=== PATIENT | male | born 1980 | race Caucasian/White ===

== ENCOUNTER 2023-11-20 18:20 | Inpatient (IN) | payer MEDICAID, SELFPAY ==
[2023-11-20 18:22] VITALS: BP 125/74; PULSE 89; RESP 18; TEMP 36.4; O2SAT 94; BMI 31.5
--- NOTE | 2023-11-20 18:26 | ED.C_ITS ---
HPI - Psych 2 General: Chief Complaint: Psychiatric Symptoms Stated Complaint: SI Time Seen by Provider: 11/20/23 18:21 History of Present Illness: Patient was to the ER by EMS with complaints of suicidal ideation. Patient states he wants to slit his throat and into his misery. Patient is homeless and is has a very valid on life. Patient says he is on multiple psychiatric medicines but does not know the name of them however he did state he took them this morning. Patient states he has been inpatient before even being here. Patient said he is willing to go again. Related Data Allergies Allergy/AdvReac Type Severity Reaction Status Date / Time No Known Allergies Allergy Verified 11/20/23 18:26 Review of Systems 2 General: Reports: 10 or more systems reviewed and unremarkable except in HPI and below Physical Exam 2 Const: COMMON NORMALS: no acute distress, average body habitus, patient oriented x3, no limitations, healthy appearing, alert and well nourished HENMT: COMMON NORMALS: normocephalic, atraumatic, hearing grossly normal bilaterally, external ears normal, Normal external nose present and moist oral mucous membranes HEAD & SCALP: normocephalic and atraumatic NOSE: Normal external nose present EXTERNAL EAR: Yes external ears normal Neck/C-Spine: COMMON NORMALS: full ROM, no lymphadenopathy, supple, no meningeal signs, no JVD and Thyroid normal THYROID: Thyroid normal Chest: COMMONS NORMALS: normal inspection of the chest and normal palpation of entire chest wall Resp: COMMON NORMALS: normal respiratory effort, No retractions, No use of accessory muscles and clear to auscultation bilaterally AUSCULTATION: clear to auscultation bilaterally Cardio: COMMON NORMALS: no JVD, regular rate, regular rhythm, S1 normal heart sound present, S2 normal heart sound present, No gallops present (Cardio), No clicks present (Cardio), No murmurs present (Cardio) and No rub (Cardio) R ATE: regular rate RHYTHM: regular rhythm HEART SOUNDS: S1 normal heart sound present and S2 normal heart sound present GI: COMMON NORMALS: Normal to inspection, nondistended, normoactive bowel sounds present, Soft to palpation, non-tender, No hepatosplenomegaly present and no masses PALPATION: Yes Soft to palpation and Yes No hepatosplenomegaly present Neuro: COMMON NORMALS: patient oriented x3 SENSORIUM/ORIENTATION: Yes alert MENINGEAL SIGNS: Yes no meningeal signs Course 2 Vital Signs: Vital signs: Vital Signs Temperature 97.6 F 11/20/23 18:22 Pulse Rate 78 11/20/23 19:14 Respiratory Rate 16 11/20/23 19:14 Blood Pressure 141/72 11/20/23 19:15 Pulse Oximetry 98 11/20/23 19:14 Oxygen Delivery Me thod Room Air 11/20/23 18:22 MDM - Psych Medical Decision Making Lab work was obtained, once patient was cleared medically, Dr. Fabian was consulted who agreed to place the patient in MPU. Differential Diagnosis Likely suicidal ideation Medical Records I reviewed the patient's medical records. Lab Data I reviewed the patient's lab results. 11/20/23 19:11/20/23 19: Laboratory Results WBC 5.93 10^3/uL (3.29-11.43) 11/20/23 19: RBC 4.43 10^6/uL (3.85-5.65) 11/20/23 19: Hgb 13.60 g/dL (11.27-16.99) 11/20/23 19: Hct 40.0 % (37-53) 11/20/23 19: MCV 90.3 fl (82-101) 11/20/23 19: MCH 30.7 pg (27-33) 11/20/23 19: MCHC 34.0 g/dL (30-55) 11/20/23 19: RDW 13.3 % (12.1-15.1) 11/20/23 19: Plt Count 298 10^3/cmm (157-399) 11/20/23 19: MPV 8.6 fL (7.4-10.4) 11/20/23 19: Neut % (Auto) 50.0 % 11/20/23 19: Lymph % (Auto) 38.1 % 11/20/23 19: [place] % (Auto) 7.8 % 11/20/23 19: Eos % (Auto) 2.4 % 11/20/23 19: Baso % (Auto) 1.2 % 11/20/23 19: Neut # (Auto) 2.97 10^3/uL (1.8-7.7) 11/20/23 19:01 Lymph # (Auto) 2.3 10^3/uL (0.8-4.8) 11/20/23 19:01 [place] # (Auto) 0.5 10^3/uL (0.2-0.9) 11/20/23 19:01 Eos # (Auto) 0.1 10^3/uL (0.0-0.8) 11/20/23 19: Baso # (Auto) 0.1 10^3/uL (0.0-0.1) 11/20/23 19: Nucleated RBC % (auto) 0 % 11/20/23 19: Nucleated RBCs # 0.0 /100WBC 11/20/23 19:01 Sodium 144 mmol/L (136-145) 11/20/23 19: Potassium 3.7 mmol/L (3.5-5.1) 11/20/23 19: Chloride 109 mmol/L (98-107) H 11/20/23 19: Carbon Dioxide 22 mmol/L (22-29) 11/20/23 19: Anion Gap 16.7 (5-19) 11/20/23 19:01 BUN 6 mg/dL (6-20) 11/20/23 19: Creatinine 0.9 mg/dL (0.7-1.2) 11/20/23 19: GFR Calculation 91.3 mL/min (90-130) 11/20/23 19: Glucose 117 mg/dL (65-115) H 11/20/23 19: Calculated Osmolality 297 mOsm/kg (285-295) H 11/20/23 19: Calcium 8.4 mg/dL (8.5-10.5) L 11/20/23 19: Total Bilirubin 0.2 mg/dL (0.15-1.2) 11/20/23 19: AST 16 U/L (0-40) 11/20/23 19: ALT 25 U/L (0-41) 11/20/23 19: Alkaline Phosphatase 66 U/L (40-130) 11/20/23 19:01 Total Protein 6.3 g/dL (6.6-8.7) L 11/20/23 19: Albumin 3.9 g/dL (3.5-5.2) 11/20/23 19:01 Globulin 2.4 g/dL (1.3-4.6) 11/20/23 19:01 Urine Color Yellow (Yellow) 11/20/23 15:09 Urine Appearance Clear (CLEAR) 11/20/23 15:09 Urine pH 5.5 (5-7) 11/20/23 15:09 Ur Specific [place] 1.018 (1.005-1.030) 11/20/23 15:09 Urine Protein Negative (Negative) 11/20/23 15:09 Urine Glucose (UA) Negative (Normal) 11/20/23 15:09 Urine Ketones Trace (Negative) 11/20/23 15:09 Urine Blood Negative (Negative) 11/20/23 15:09 Urine Nitrate Negative (Negative) 11/20/23 15:09 Urine Bilirubin Negative (Negative) 11/20/23 15:09 Urine Urobilinogen 0.2 mg/dL (Negative) 11/20/23 15:09 Ur Leukocyte Esterase Negative (Negative) 11/20/23 15:09 Amorphous Sediment Not Reportable 11/20/23 15:09 Salicylates < 0.3 mg/dL (3-10) L 11/20/23 19:01 Urine Opiates Screen Negative ng/mL (Negative) 11/20/23 15:09 Acetaminophen < 5.0 ug/mL (10-30) L 11/20/23 19:01 Ur Barbiturates Screen Negative ng/mL (Negative) 11/20/23 15:09 Ur Phencyclidine Scrn Negative ng/mL (Negative) 11/20/23 15:09 Ur Amphetamines Screen Positive ng/mL (Negative) H 11/20/23 15:09 U Benzodiazepines Scrn Positive ng/mL (Negative) H 11/20/23 15:09 Urine Cocaine Screen Negative ng/mL (Negative) 11/20/23 15:09 U Marijuana (THC) Screen Positive ng/mL (Negative) H 11/20/23 15:09 Ethyl Alcohol 110 mg/dL (0-10) H 11/20/23 19:01 All radiology interpretation(s) finalized by discharge Discharge Plan Discharge Patient Disposition: Admitted As Inpatient Clinical Impression: Suicidal ideation, Polysubstance abuse Condition: Stable Coding Level of Care Code ED Computer System Specialist for Nohemy Newsome
--- NOTE | 2023-11-20 18:46 | ECG_ITS ---
[facility] Test Date: 2023-11-20 Pat Name: Marquez Driscoll Department: Room: Gender: Male Mechanical Lead: : 1980 Requested By: Emile Juarez Order Number: [id number] Shari MD: Precious Padilla M.D. Measurements Intervals [place] Rate: 92 P: 57 NC: 145 QRS: 67 QRSD: 101 T: 66 QT: 356 QTc: 441 Interpretive Statements SINUS RHYTHM Compared to ECG 07/06/2016 22:37:18 No significant changes Electronically Signed On 11-21-2023 23:37:03 CDT by Precious Padilla M.D. [id number]
[2023-11-20 19:14] VITALS: PULSE 78; RESP 16; O2SAT 98
[2023-11-20 19:15] VITALS: BP 141/72
[2023-11-20 19:18] LABS: Basophils # 0.1 10^3/uL (0.0-0.1); Basophils % 1.2 %; Eosinophils # 0.1 10^3/uL (0.0-0.8); Eosinophils % 2.4 %; Lymphocytes # 2.3 10^3/uL (0.8-4.8); Lymphocytes % 38.1 %; Mean Corpuscular Hemoglobin 30.7 pg (27-33); Mean Corpuscular Volume 90.3 fl (82-101); Mean Platelet Volume 8.6 fL (7.4-10.4); Monocytes # 0.5 10^3/uL (0.2-0.9); Monocytes % 7.8 %; Neutrophils # 2.97 10^3/uL (1.8-7.7); Nucleated Red Blood Cells % 0 %; Platelet Count 298 10^3/cmm (157-399); Red Blood Count 4.43 10^6/uL (3.85-5.65); Red Cell Distribution Width 13.3 % (12.1-15.1); White Blood Count 5.93 10^3/uL (3.29-11.43)
[2023-11-20 19:20] LABS: Add Urine Microscopic? NO
[2023-11-20 19:29] LABS: Bilirubin Urine Negative (Negative); Blood Urine Negative (Negative); Glucose Urine UA Negative (Normal); Ketones Urine Trace (Negative); Leukocyte Esterase Urine Negative (Negative); Nitrate Urine Negative (Negative); Protein Urine Negative (Negative); Specific Gravity, Urine 1.018 (1.005-1.030); Urine Appearance Clear (CLEAR); Urine Color Yellow (Yellow); Urobilinogen Urine 0.2 mg/dL (Negative); pH Urine 5.5 (5-7)
[2023-11-20 19:37] LABS: Alanine Aminotransferase 25 U/L (0-41); Albumin Level 3.9 g/dL (3.5-5.2); Alcohol Level 110 mg/dL (0-10); Alkaline Phosphatase 66 U/L (40-130); Anion Gap 16.7 (5-19); Aspartate Amino Transferase 16 U/L (0-40); Blood Urea Nitrogen 6 mg/dL (6-20); Calcium 8.4 mg/dL (8.5-10.5); Carbon Dioxide 22 mmol/L (22-29); Chloride 109 mmol/L (98-107); Creatinine Clr Calc Pharmacy 122.7318; Globulin 2.4 g/dL (1.3-4.6); Glomerular Filtration Rate 91.3 mL/min (90-130); Glucose 117 mg/dL (65-115); Osmolality Calculated 297 mOsm/kg (285-295); Potassium 3.7 mmol/L (3.5-5.1); Sodium 144 mmol/L (136-145); Total Bilirubin 0.2 mg/dL (0.15-1.2); Total Protein 6.3 g/dL (6.6-8.7)
[2023-11-20 19:39] LABS: Amphetamines Screen Urine Positive (Negative); Barbiturates Screen Urine Negative (Negative); Benzodiazepines Screen Urine Positive (Negative); Cocaine Screen Urine Negative (Negative); Opiate Screen Urine Negative (Negative); PCP Screen Urine Negative (Negative); THC Screen Urine Positive (Negative)
[2023-11-20 19:45] LABS: Acetaminophen < 5.0 ug/mL (10-30); Salicylate < 0.3 mg/dL (3-10)
[2023-11-20 20:01] LABS: Charge for UA Resulting for Rev
--- NOTE | 2023-11-20 20:36 | PC.NURSE ---
[address] [facility] copy of [address] RN and security. Pt stated that he has been placed under a 96 HH in the past and denies having any questions. Pt remained on his side facing the wall during interaction, pt answered all questions correctly.
[2023-11-20 20:51] VITALS: BP 114/76; PULSE 75; RESP 16; O2SAT 95
[2023-11-20 21:22] VITALS: BP 129/92; PULSE 95; RESP 20; TEMP 36.6; O2SAT 97
[2023-11-20 22:00] VITALS: BP 129/92; PULSE 95; RESP 20; TEMP 36.6; O2SAT 97
[2023-11-21] VITALS (8 sets, daily range): BP systolic 118–157; BP diastolic 74–99; PULSE 77–93; RESP 16–18; TEMP 36.4–36.9; O2SAT 95–100
[2023-11-21] MEDS: multivitamin therapeutic Tablet 1 TAB PO (08:44)
[2023-11-21] MEDS: folic acid 1 mg Tablet PO (08:44)
[2023-11-21] MEDS: thiamine 100 mg Tablet PO (08:44)
[2023-11-21] MEDS: meloxicam 7.5 mg tablet 15 MG PO (10:49)
[2023-11-21] MEDS: cetirizine 10 mg Tablet PO (10:49)
[2023-11-21] MEDS: losartan 50 mg Tablet PO (10:49)
[2023-11-21] MEDS: pantoprazole DR 40 mg Tablet PO (10:49)
[2023-11-21] MEDS: diazePAM 5 mg Tablet 10 MG PO (10:59)
[2023-11-21] MEDS: hyDROXYzine 25 mg Capsule 50 MG PO (13:06)
[2023-11-21] MEDS: buPROPion XL (24 HR) 150 mg Tablet PO (14:39)
[2023-11-21] MEDS: paliperidone ER 6 mg Tablet PO (14:39)
--- NOTE | 2023-11-21 14:45 | P.NPUHP_ITS ---
Providers/Chief Complaint 2 Admitting Physician: Jonny Erazo MD Primary Care Provider: LALITHA Holliday Chief Complaint: SI HPI NPU History of Present Illness Marquez Driscoll is a 43 year old male with a history of multiple inpatient psychiatric hospitalizations who presented to the emergency department by EMS with complaints of having suicidal ideation. The patient had indicated that he wishes to slit his throat and states that he has been depressed. He reports having been homeless for several years with brief periods of staying with friends and having to stay at various shelters. He reports that he had been prescribed multiple medications but states that he was forgetful as to the name of the medications. He had reported a history of methamphetamine abuse since the age of [age] years old. He presented with a blood alcohol level of 110 and a urine drug screen that was positive for benzodiazepines, methamphetamine and marijuana. The patient had reported a previous history of psychosis secondary to using methamphetamine although he had stated that he had been diagnosed with paranoid schizophrenia. Patient had also reported having depression and suicidal thoughts. He had endorsed some feelings of hopelessness. He had acknowledged having previously been hospitalized here several years ago. Records were reviewed and the patient had reported suicidal ideation in the past with a history of benzodiazepine misuse noted. He had reported that he has no history of alcohol related withdrawal symptoms although previous records had indicated the patient had significant use of alcohol with some concerns over alcohol related withdrawal symptoms. He does appear to have a history of physical and verbal aggression. He had apparently had a history of using Valium and running out of his medications early due to increased use of it at this time. The patient had reported that he had a frequent monthly visit with his outpatient psychiatrist in the community and states that he has been trying to get help for his mood problems. He had endorsed hearing voices at this time stating that he should kill himself. Inpatient psychiatric history: He reports having been treated at [facility] less than 1 month ago. Patient had reported previous admissions inpatient at [facility], the neuropsychiatric unit, and [facility]. Outpatient psychiatric history: He currently is receiving treatment through the [facility] under Dr. Abelino WOO for medication management. Previous medications include Wellbutrin, Lexapro, hydroxyzine, Remeron, Valium, Minipress, gabapentin, Haldol, Zoloft,, olanzapine, Abilify Substance abuse history: The patient had reported a history of inpatient substance abuse treatment at [facility] that he had apparently left prematurely. He had reported other previous inpatient substance abuse treatment for methamphetamine, opiates, and alcohol. Medical history: History of fibular fracture, history of traumatic brain injury status postcraniotomy, right knee pain, HTN, GERD, chronic pain. Surgical history: Craniotomy Allergies: No known drug allergies Medications: Losartan, pantoprazole, meloxicam, hydroxyzine, diclofenac, Valium 10 mg 3 times a day, Zyrtec 10 mg daily. Legal history: He reports a history of having been incarcerated and is currently on probation. history: none Family psychiatric history: Paternal grandfather had schizophrenia along with father. Social History: The patient is currently homeless. He states he had been previously 1 time and is now . He has 3 children of adult age. He did not endorse any significant history of abuse. The patient's parents had split up when he was 8 years old. He reports that he had earned his GED and grew up near to come [facility]. He states that he has trouble with keeping a job. He has active legal troubles. He has 1 brother and a sister who is . He had reported that he had no learning problems growing up. Meds NPU Home Medications Medication Instructions Recorded Confirmed Last Taken Type cetirizine 10 mg tablet 10 mg PO DAILY 11/21/23 11/21/23 Unknown History diazepam 10 mg tablet 10 mg PO TID PRN Anxiety 11/21/23 11/21/23 Unknown History diclofenac sodium 1 % topical gel 2 g topical QID 11/21/23 11/21/23 Unknown History hydrocortisone 1 % topical cream 1 applic topical TID PRN Itching 11/21/23 11/21/23 Unknown History hydroxyzine pamoate 50 mg capsule 50 mg PO PRN PRN Anxiety 11/21/23 11/21/23 Unknown History losartan 50 mg tablet 50 mg PO DAILY 11/21/23 11/21/23 Unknown History meloxicam 15 mg tablet 15 mg PO DAILY 11/21/23 11/21/23 Unknown History naproxen 500 mg tablet 500 mg PO BID 11/21/23 11/21/23 Unknown History pantoprazole 40 mg tablet,delayed 40 mg PO DAILY 11/21/23 11/21/23 Unknown History release Allergies Allergy/AdvReac Type Severity Reaction Status Date / Time No Known Allergies Allergy Verified 11/20/23 18:26 Mental Status Exam 2 MSE Comments: The patient appeared somewhat older than his stated age. He was somewhat demanding during his interview with some sense of entitlement noted. His dentition appeared poor. He appeared slightly overweight. There was no evidence of any abnormal involuntary motor movements tics or tremors appreciated. His speech was diminished in productivity but normal in volume. His mood was described as depressed. His affect was restricted in range and mood congruent. He had reported auditory hallucinations and denied any visual hallucinations. He reported the hallucinations were telling him to harm himself. There was no clear evidence of delusional thinking. There was some evidence of mild paranoia and distrust. His thought process was linear logical and goal-directed. His thought content showed evidence of suicidal ideation with active plan to slit his throat. He denied any homicidal ideation. His recent and remote memory appeared grossly intact. His insight is feeble. His judgment is impaired. His impulse control appeared limited. Vitals/I&O/Wt Last Vital Signs Temp 98.1 F 11/21/23 12:20 Pulse 93 11/21/23 12:20 Resp 18 11/21/23 12:20 BP 157/99 11/21/23 12:20 Pulse Ox 100 11/21/23 12:20 O2 Del Method Room Air 11/21/23 05:02 Weight last 48 hrs Weight 99.79 kg Data NPU 11/20/23 19:01 11/20/23 19:01 A&P Assessment and plan (1) Unspecified psychosis: (2) Suicidal ideation: (3) Polysubstance abuse: (4) Depression, unspecified: Plan 43-year-old male history of multiple inpatient hospitalizations currently using multiple substances and endorsing suicidal ideation in the context of active homelessness most recently discharged less than a month ago from another inpatient psychiatric facility. #1.? Engage patient in individual milieu and group therapy. #2?? Recommend sober living treatment at the highest level of care to which the patient is willing to commit #3??? CIWA for alcohol withdrawal #4?? TO-15 minute checks? #5?? Restart psychiatric medications with addition of invega to target psychosis. Involuntary Hold Information 2 96 Hour Hold: 96 Hour Involuntary Admission: Yes 96 Hour Hold Ending Date: 11/26/23 96 Hour Hold Ending Time: 20:05 Attestations NPU 2 Medical Necessity Statement*: Inpatient hospitalization is medically necessary and deemed to ?be ?the clinically appropriate intervention ?at this time.? We will monitor/initiate medications and make changes as indicated.? The patient will be in the hospital for over 2 midnights.? The patient?s likely length of stay 5-7 days. Coding Level of Care Code Acute Code for Chg Fwd Diagnoses Unspecified psychosis F29 Suicidal ideation R45.851 Polysubstance abuse F19.10 Depression, unspecified F32.A
[2023-11-21] MEDS: naproxen 500 mg Tablet PO (17:32)
[2023-11-22] VITALS (8 sets, daily range): BP systolic 122–151; BP diastolic 74–102; PULSE 69–96; RESP 16–18; TEMP 36.4–36.7; O2SAT 95–97
[2023-11-22] MEDS: meloxicam 7.5 mg tablet 15 MG PO (08:21)
[2023-11-22] MEDS: thiamine 100 mg Tablet PO (08:21)
[2023-11-22] MEDS: naproxen 500 mg Tablet PO ×2 (08:22→17:05)
[2023-11-22] MEDS: paliperidone ER 6 mg Tablet PO (08:22)
[2023-11-22] MEDS: pantoprazole DR 40 mg Tablet PO (08:22)
[2023-11-22] MEDS: buPROPion XL (24 HR) 150 mg Tablet PO (08:22)
[2023-11-22] MEDS: diazePAM 5 mg Tablet 10 MG PO ×2 (08:22→17:05)
[2023-11-22] MEDS: multivitamin therapeutic Tablet 1 TAB PO (08:23)
[2023-11-22] MEDS: losartan 50 mg Tablet PO (08:23)
[2023-11-22] MEDS: folic acid 1 mg Tablet PO (08:23)
[2023-11-22] MEDS: cetirizine 10 mg Tablet PO (08:24)
[2023-11-22] MEDS: diclofenac 1% Topical Gel 100 gm 4 APPLIC TOPICAL ×2 (08:26→17:05)
--- NOTE | 2023-11-22 09:25 | PC.NURSE ---
UP WALKING IN THE HALLS. PT REQUESTS MY VALIUM I'M REALLY ANXIOUS. MED NURSE NOTIFIED TO GIVE. RATES ANXIETY 7/10 AND DEPRESSION 6/10. RATES PAIN 6/10 IN KNEES. MED NURSE TO GIVE NAPROXEN AND AM MEDICATIONS FOR PAIN. PT REPORTS HE SLEPT GOOD STATES GOAL FOR THE DAY IS TO GET IN THAT PROGRAM IN [facility]. I NEED THE APPLICATION. PT WAS ASSURED THAT CASE MANAGEMENT WOULD COME AND SPEAK TO TO HIM TODAY AND I WOULD LET THEM KNOW HE NEEDED THE CEDRIC. PT NOTED TO HAVE FLAT AFFECT AND DEPRESSED MOOD. DENIES SI/HI AND AVH AT THIS TIME. ALL QUESTIONS ANSWERED AND SUPPORT WAS VOICED.
[2023-11-22] MEDS: hyDROXYzine 25 mg Capsule 50 MG PO (11:52)
--- NOTE | 2023-11-22 15:03 | W.PM.NPUPNS ---
Subjective NPU Subjective: 43-year-old male admitted with suicidal ideation having been homeless with reports of history of alcohol use along with methamphetamine use. Patient had expressed desire to go to the [facility] in [place] for eventual placement. The patient had understood that he would not be allowed to be on controlled substances there and requested that a Valium taper occur. He stated that he wished to be there as it was close to where his mother was at this time. He had endorsed having had a head injury and history of a craniotomy. The patient had reported having problems with impulsivity and mood swings and reported no side effects from the Invega 6 mg daily. The patient had reported feeling a little bit better today. He had endorsed having a history of mood swings and problems with impulse control. He denied any hallucinations at this time. He reports the auditory hallucinations were present. He was positive for methamphetamine. Mental Status Exam MSE Comments: The patient appeared somewhat older than his stated age. He was somewhat demanding during his interview with some sense of entitlement noted. His dentition appeared poor. He appeared slightly overweight. There was no evidence of any abnormal involuntary motor movements tics or tremors appreciated. His speech was diminished in productivity and rate but normal in volume. His mood was described as depressed. His affect was restricted in range and mood congruent. He had reported auditory hallucinations and denied any visual hallucinations. He reported the hallucinations continue to be telling him to harm himself. There was no clear evidence of delusional thinking. There was some evidence of mild paranoia and distrust. His thought process was linear logical and goal-directed. His thought content showed evidence of suicidal ideation although he reported no plan today. He denied any homicidal ideation. His recent and remote memory appeared grossly intact. His insight is feeble. His judgment is impaired. His impulse control appeared limited. Vitals/I&O/Wt Last Vital Signs Temp 97.6 F 11/22/23 08:00 Pulse 84 11/22/23 12:00 Resp 17 11/22/23 12:00 BP 134/83 11/22/23 12:00 Pulse Ox 97 11/22/23 12:00 O2 Del Method Room Air 11/21/23 16:00 Weight last 48 hrs Weight 99.79 kg Data NPU 11/20/23 19:01 11/20/23 19:01 A&P Assessment and plan (1) Unspecified psychosis: (2) Suicidal ideation: (3) Polysubstance abuse: (4) Depression, unspecified: Plan 43-year-old male history of multiple inpatient hospitalizations currently using multiple substances and endorsing suicidal ideation in the context of active homelessness most recently discharged less than a month ago from another inpatient psychiatric facility. #1.? Engage patient in individual milieu and group therapy. #2?? Recommend sober living treatment at the highest level of care to which the patient is willing to commit #3??? CIWA for alcohol withdrawal #4?? TO-15 minute checks? #5?? Continue Lexapro for depression, invega 6mg daily to target psychosis. Began taper of Valium with decrease to 10mg bid today. Involuntary Hold Information 96 Hour Hold: 96 Hour Involuntary Admission: Yes 96 Hour Hold Ending Date: 11/26/23 96 Hour Hold Ending Time: 20:05 Attestations NPU Medical Necessity Statement*: Inpatient hospitalization is medically necessary and deemed to ?be ?the clinically appropriate intervention ?at this time.? We will monitor/initiate medications and make changes as indicated.?? The patient?s likely length of stay 5-7 days. Coding Level of Care Code Acute Code for Chg Fwd Diagnoses Unspecified psychosis F29 Suicidal ideation R45.851 Polysubstance abuse F19.10 Depression, unspecified F32.A
[2023-11-23] MEDS: hyDROXYzine 25 mg Capsule 50 MG PO ×2 (01:54→12:58)
[2023-11-23 04:00] VITALS: BP 142/91; PULSE 76; RESP 16; O2SAT 96
[2023-11-23] MEDS: OLANZapine 5 mg ODT PO (05:50)
--- NOTE | 2023-11-23 07:56 | PC.NURSE ---
During morning assessment, patient asks to be discharged earlier than his 96-hour ending date. Patient has a plan to go to [facility]. He says he has to fill out the application and stop taking valium. Patient says his mom is about 5 miles from this facility and that she is supportive of him. Patient denies SI, HI, AVH, depression, and anxiety. Calm during assessment.
[2023-11-23] MEDS: paliperidone ER 6 mg Tablet PO (07:58)
[2023-11-23] MEDS: diazePAM 5 mg Tablet 10 MG PO (07:58)
[2023-11-23] MEDS: pantoprazole DR 40 mg Tablet PO (07:58)
[2023-11-23] MEDS: multivitamin therapeutic Tablet 1 TAB PO (07:58)
[2023-11-23] MEDS: cetirizine 10 mg Tablet PO (07:58)
[2023-11-23] MEDS: buPROPion XL (24 HR) 150 mg Tablet PO (07:58)
[2023-11-23] MEDS: naproxen 500 mg Tablet PO ×2 (07:58→17:08)
[2023-11-23] MEDS: folic acid 1 mg Tablet PO (07:58)
[2023-11-23 07:59] VITALS: BP 151/111
[2023-11-23] MEDS: meloxicam 7.5 mg tablet 15 MG PO (07:59)
[2023-11-23] MEDS: losartan 50 mg Tablet PO (07:59)
[2023-11-23] MEDS: thiamine 100 mg Tablet PO (07:59)
[2023-11-23 08:00] VITALS: BP 151/111; PULSE 99; RESP 18; TEMP 36.6; O2SAT 99
[2023-11-23 11:34] VITALS: BP 109/73; PULSE 78; RESP 16; TEMP 36.8; O2SAT 97
--- NOTE | 2023-11-23 12:59 | PC.NURSE ---
Patient reports anxiety 07/29. Administered vistaril 50mg PO to patient.
--- NOTE | 2023-11-23 14:40 | PC.NURSE ---
THis nurse takled with staff at [facility] in [place]. Patient was picking up Valium from Jan 02, 2024 until September 19, 2023. Talked to staff at [facility]. Patient last picked up valium on 10/30, 90 tablets for a 30 day supply. 10mg PO TID PRN.
[2023-11-23 16:00] VITALS: BP 156/94; PULSE 111; RESP 18; TEMP 36.6; O2SAT 97
--- NOTE | 2023-11-23 16:00 | P.NPUPN_ITS ---
Subjective NPU 2 Subjective: Patient presented today reporting that he is doing okay. He identified that he wants to go to the sober living program and is very interested in leaving today. We discussed concerns about his Valium use which he really downplayed and said that he does not even use it as prescribed and probably has a inappropriate relationship with the Valium. He reports that he does not need it and does not believe that he even needs the other medications because there was some resistance by 1 program to him taking oral Invega. We asked him if he was interested in taking the injection which led to him reporting that he would does not want the medication at all and just wants to be able to go to this program. We discussed finding out whether the program has openings that we will be still available on Sunday as we are not wanting to make any unplanned discharge because he is chomping at the bed to go. He denied any side effects to the medication. Mental Status Exam 2 MSE Comments: This is a obese white male in hospital scrubs with adequate grooming and limited eye contact. No abnormal movements except for mild psychomotor retardation. Somewhat cooperative with exam but continuing to be demanding in mild distress. Speech was slightly decreased rate and volume. Mood described as better for like him ready to go to treatment, affect slightly irritable. Thought process mostly organized. Thought content: Patient denies suicidal or homicidal ideation, there were no delusions reported or noted, he denied any auditory or visual hallucinations. Attention and concentration appeared intact and memory was mostly reliable but no more formally tested. He is alert and oriented x 3. Insight and judgment are limited and impulse control is limited versus impaired. Vitals/I&O/Wt Last Vital Signs Temp 97.9 F 11/23/23 16:00 Pulse 111 H 11/23/23 16:00 Resp 18 11/23/23 16:00 BP 156/94 11/23/23 16:00 Pulse Ox 97 11/23/23 16:00 O2 Del Method Room Air 11/23/23 16:00 Data NPU 11/20/23 19:01 11/20/23 19:01 A&P Assessment and plan (1) Unspecified psychosis: (2) Suicidal ideation: (3) Polysubstance abuse: (4) Depression, unspecified: Plan 43-year-old male history of multiple inpatient hospitalizations currently using multiple substances and endorsing suicidal ideation in the context of active homelessness most recently discharged less than a month ago from another inpatient psychiatric facility. 1. Continue current medication including Lexapro and Invega for psychosis. Will decrease Valium to 5 mg p.o. 3 times daily. 2. Continue every 15 minute checks for safety. 3. Encourage individual group and milieu therapy. 4. Continue CIWA protocol for alcohol as well as benzodiazepine withdrawal. 5. Encourage individual, group and milieu therapy. 6. Patient working with social work team for sober living options. Involuntary Hold Information 2 96 Hour Hold: 96 Hour Involuntary Admission: Yes 96 Hour Hold Ending Date: 11/26/23 96 Hour Hold Ending Time: 20:05 Attestations NPU 2 Medical Necessity Statement*: Inpatient hospitalization is medically necessary and deemed to ?be ?the clinically appropriate intervention ?at this time.? We will monitor/initiate medications and make changes as indicated.?? The patient?s likely length of stay 5-7 days. Coding Level of Care Code Acute Code for Chg Fwd Diagnoses Unspecified psychosis F29 Suicidal ideation R45.851 Polysubstance abuse F19.10 Depression, unspecified F32.A
[2023-11-23] MEDS: diclofenac 1% Topical Gel 100 gm 4 APPLIC TOPICAL (17:10)
--- NOTE | 2023-11-23 18:48 | PC.NURSE ---
PT REFUSED INSULIN AT DINNER TIME. PATIENT ALSO REFUSED VALIUM. DR. STOKES NOTIFIED. EDUCATION PERFORMED TO PATIENT.
[2023-11-23 20:00] VITALS: BP 121/77; PULSE 88; RESP 16; O2SAT 96
--- NOTE | 2023-11-24 00:04 | PC.NURSE ---
Due to another patient showing signs of psychosis, the midnight CIWA vitals were not done.
[2023-11-24 04:00] VITALS: BP 121/78; PULSE 84; RESP 16; O2SAT 97
[2023-11-24 07:25] VITALS: BP 128/88; PULSE 85; RESP 16; TEMP 36.9; O2SAT 97
[2023-11-24] MEDS: naproxen 500 mg Tablet PO ×2 (10:08→17:49)
[2023-11-24] MEDS: multivitamin therapeutic Tablet 1 TAB PO (10:09)
[2023-11-24] MEDS: paliperidone ER 6 mg Tablet PO (10:10)
[2023-11-24] MEDS: cetirizine 10 mg Tablet PO (10:10)
[2023-11-24] MEDS: buPROPion XL (24 HR) 150 mg Tablet PO (10:10)
[2023-11-24] MEDS: meloxicam 7.5 mg tablet 15 MG PO (10:10)
[2023-11-24] MEDS: folic acid 1 mg Tablet PO (10:10)
[2023-11-24] MEDS: diazePAM 5 mg Tablet 10 MG PO (10:11)
[2023-11-24] MEDS: thiamine 100 mg Tablet PO (10:11)
[2023-11-24] MEDS: pantoprazole DR 40 mg Tablet PO (10:11)
[2023-11-24] MEDS: diclofenac 1% Topical Gel 100 gm 4 APPLIC TOPICAL ×2 (10:18→21:31)
[2023-11-24 10:54] VITALS: BP 119/74; PULSE 93; RESP 16; TEMP 37.1; O2SAT 95
--- NOTE | 2023-11-24 11:54 | P.NPUPN_ITS ---
Subjective NPU 2 Subjective: Patient presented today reporting that he is doing okay. He continues to be quite focused on wanting to discharge immediately. We discussed the fact that we do not like to do unplanned discharges. And that we do not really know what the program's expectations are. He is being resistant to his medication because he is afraid that it might cause them to refuse him. We discussed the fact that the likely discharge plan would be Sunday after the social work team was able to do confirmation but he continues to lobby for discharge as soon as is possible including today. Mental Status Exam 2 MSE Comments: This is a obese white male in hospital scrubs with adequate grooming and limited eye contact. No abnormal movements except for mild psychomotor retardation. Somewhat cooperative with exam but continuing to be demanding in mild distress. Speech was slightly decreased rate and volume. Mood described as better for like him ready to go to treatment, affect slightly irritable. Thought process mostly organized. Thought content: Patient denies suicidal or homicidal ideation, there were no delusions reported or noted, he denied any auditory or visual hallucinations. Attention and concentration appeared intact and memory was mostly reliable but no more formally tested. He is alert and oriented x 3. Insight and judgment are limited and impulse control is limited versus impaired. Vitals/I&O/Wt Last Vital Signs Temp 98.7 F 11/24/23 10:54 Pulse 93 11/24/23 10:54 Resp 16 11/24/23 10:54 BP 119/74 11/24/23 10:54 Pulse Ox 95 11/24/23 10:54 O2 Del Method Room Air 11/24/23 10:54 Data NPU 11/20/23 19:01 11/20/23 19:01 A&P Assessment and plan (1) Unspecified psychosis: (2) Suicidal ideation: (3) Polysubstance abuse: (4) Depression, unspecified: Plan 43-year-old male history of multiple inpatient hospitalizations currently using multiple substances and endorsing suicidal ideation in the context of active homelessness most recently discharged less than a month ago from another inpatient psychiatric facility. 1. Continue current medication including Lexapro and Invega for psychosis. Will decrease Valium to 5 mg p.o. 3 times daily. 2. Continue every 15 minute checks for safety. 3. Encourage individual group and milieu therapy. 4. Continue CIWA protocol for alcohol as well as benzodiazepine withdrawal. 5. Encourage individual, group and milieu therapy. 6. Patient working with social work team for sober living options. Reportedly has a facility picked saying he can come whenever. Involuntary Hold Information 2 96 Hour Hold: 96 Hour Involuntary Admission: Yes 96 Hour Hold Ending Date: 11/26/23 96 Hour Hold Ending Time: 20:05 Attestations NPU 2 Medical Necessity Statement*: Inpatient hospitalization is medically necessary and deemed to ?be ?the clinically appropriate intervention ?at this time.? We will monitor/initiate medications and make changes as indicated.?? The patient?s likely length of stay 4-6 days. Coding Level of Care Code Acute Code for Chg Fwd Diagnoses Unspecified psychosis F29 Suicidal ideation R45.851 Polysubstance abuse F19.10 Depression, unspecified F32.A
[2023-11-24 14:00] VITALS: BP 134/90; PULSE 99; RESP 18; TEMP 37; O2SAT 98
[2023-11-24] MEDS: diazePAM 5 mg Tablet PO (17:49)
[2023-11-24 19:29] VITALS: BP 123/82; PULSE 97; RESP 18; TEMP 36.6; O2SAT 98
[2023-11-24] MEDS: trazodone 50 mg Tablet PO (21:32)
[2023-11-25 06:00] VITALS: BP 133/82; PULSE 93; RESP 18; TEMP 36.7; O2SAT 96; BMI 30.6
[2023-11-25] MEDS: multivitamin therapeutic Tablet 1 TAB PO (09:05)
[2023-11-25] MEDS: cetirizine 10 mg Tablet PO (09:05)
[2023-11-25] MEDS: naproxen 500 mg Tablet PO ×2 (09:05→17:12)
[2023-11-25] MEDS: meloxicam 7.5 mg tablet 15 MG PO (09:05)
[2023-11-25] MEDS: paliperidone ER 6 mg Tablet PO (09:05)
[2023-11-25] MEDS: folic acid 1 mg Tablet PO (09:05)
[2023-11-25] MEDS: pantoprazole DR 40 mg Tablet PO (09:05)
[2023-11-25] MEDS: buPROPion XL (24 HR) 150 mg Tablet PO (09:05)
[2023-11-25] MEDS: diazePAM 5 mg Tablet PO ×2 (09:05→17:12)
[2023-11-25] MEDS: thiamine 100 mg Tablet PO (09:06)
[2023-11-25 14:00] VITALS: BP 125/91; PULSE 115; RESP 18; TEMP 36.8; O2SAT 98
--- NOTE | 2023-11-25 18:18 | P.NPUPN_ITS ---
Subjective NPU 2 Subjective: Patient presented today reporting that he is doing okay. He continues to focus on being discharged and appears to be possibly being dishonest about the arrangement per staff reports of conversations with the program he is trying to get into. He denies any side effects to his medications and continues to focus on being discharged. Mental Status Exam 2 MSE Comments: This is a obese white male in hospital scrubs with adequate grooming and limited eye contact. No abnormal movements except for mild psychomotor retardation. Somewhat cooperative with exam but continuing to be demanding in mild distress. Speech was slightly decreased rate and volume. Mood described as better for like him ready to go to treatment, affect slightly irritable. Thought process mostly organized. Thought content: Patient denies suicidal or homicidal ideation, there were no delusions reported or noted, he denied any auditory or visual hallucinations. Attention and concentration appeared intact and memory was mostly reliable but no more formally tested. He is alert and oriented x 3. Insight and judgment are limited and impulse control is limited versus impaired. Vitals/I&O/Wt Last Vital Signs Temp 98.2 F 11/25/23 14:00 Pulse 115 H 11/25/23 14:00 Resp 18 11/25/23 14:00 BP 125/91 11/25/23 14:00 Pulse Ox 98 11/25/23 14:00 O2 Del Method Room Air 11/25/23 14:00 Weight last 48 hrs Weight 96.842 kg Data NPU 11/20/23 19:01 11/20/23 19:01 A&P Assessment and plan (1) Unspecified psychosis: (2) Suicidal ideation: (3) Polysubstance abuse: (4) Depression, unspecified: Plan 43-year-old male history of multiple inpatient hospitalizations currently using multiple substances and endorsing suicidal ideation in the context of active homelessness most recently discharged less than a month ago from another inpatient psychiatric facility. 1. Continue current medication including Lexapro and Invega for psychosis. Will decrease Valium to 5 mg p.o. 3 times daily. Will decrease Valium to 5 mg p.o. twice daily likely tomorrow 2. Continue every 15 minute checks for safety. 3. Encourage individual group and milieu therapy. 4. Continue CIWA protocol for alcohol as well as benzodiazepine withdrawal. 5. Encourage individual, group and milieu therapy. 6. Patient working with social work team for sober living options. Reportedly has a facility picked saying he can come whenever. Involuntary Hold Information 2 96 Hour Hold: 96 Hour Involuntary Admission: Yes 96 Hour Hold Ending Date: 11/26/23 96 Hour Hold Ending Time: 20:05 Attestations NPU 2 Medical Necessity Statement*: Inpatient hospitalization is medically necessary and deemed to ?be ?the clinically appropriate intervention ?at this time.? We will monitor/initiate medications and make changes as indicated.?? The patient?s likely length of stay 1-3 days. Coding Level of Care Code Acute Code for Chg Fwd Diagnoses Unspecified psychosis F29 Suicidal ideation R45.851 Polysubstance abuse F19.10 Depression, unspecified F32.A
[2023-11-25 21:55] VITALS: BP 127/89; PULSE 107; RESP 18; TEMP 36.6; O2SAT 98
[2023-11-26] MEDS: hyDROXYzine 25 mg Capsule 50 MG PO (02:26)
[2023-11-26 06:00] VITALS: BP 101/65; PULSE 86; RESP 16; O2SAT 95
--- NOTE | 2023-11-26 08:53 | PC.NURSE ---
UP WALKING HALLS. DENIES PAIN. DENIES SI/HI AND AVH AT THIS TIME. RATES ANXIETY 10 AND DEPRESSION /. PT STATES HE IS ANXIOUS BUT SAYS I GET MY VALIUM HERE SOON. REPORTS HE SLEPT OKAY BUT I HAD NIGHTMARES ALL NIGHT. PT STATES GOAL FOR THE DAY IS TO LEAVE. PT IS NOTED TO HAVE A FLAT AFFECT AND GUARDED WITH STAFF AT TIMES. ALL QUESTIONS ANSWERED AND SUPPORT WAS VOICED. PT STATES HE ANTICIPATES DISCHARGE TODAY. RN EDUCATED PT THAT I WOULD LET HIM KNOW AFTER THE MEETING.
[2023-11-26] MEDS: folic acid 1 mg Tablet PO (09:49)
[2023-11-26] MEDS: buPROPion XL (24 HR) 150 mg Tablet PO (09:49)
[2023-11-26] MEDS: naproxen 500 mg Tablet PO (09:49)
[2023-11-26] MEDS: meloxicam 7.5 mg tablet 15 MG PO (09:50)
[2023-11-26] MEDS: cetirizine 10 mg Tablet PO (09:50)
[2023-11-26] MEDS: pantoprazole DR 40 mg Tablet PO (09:50)
[2023-11-26] MEDS: thiamine 100 mg Tablet PO (09:50)
[2023-11-26] MEDS: multivitamin therapeutic Tablet 1 TAB PO (09:50)
[2023-11-26] MEDS: diazePAM 5 mg Tablet PO (09:50)
--- NOTE | 2023-11-26 09:50 | PC.NURSE ---
pt refusing invega states causing nightmares.
--- NOTE | 2023-11-26 13:00 | P.NPUDS_ITS ---
Diagnoses at Discharge Discharge Diagnosis (1) Unspecified psychosis: Status: Acute (2) Suicidal ideation: Status: Acute (3) Polysubstance abuse: Status: Acute (4) Depression, unspecified: Status: Acute Reason for Visit Reason for Visit: SI Brief History: History of Present Illness Marquez Driscoll is a 43 year old male with a history of multiple inpatient psychiatric hospitalizations who presented to the emergency department by EMS with complaints of having suicidal ideation. The patient had indicated that he wishes to slit his throat and states that he has been depressed. He reports having been homeless for several years with brief periods of staying with friends and having to stay at various shelters. He reports that he had been prescribed multiple medications but states that he was forgetful as to the name of the medications. He had reported a history of methamphetamine abuse since the age of [age] years old. He presented with a blood alcohol level of 110 and a urine drug screen that was positive for benzodiazepines, methamphetamine and marijuana. The patient had reported a previous history of psychosis secondary to using methamphetamine although he had stated that he had been diagnosed with paranoid schizophrenia. Patient had also reported having depression and suicidal thoughts. He had endorsed some feelings of hopelessness. He had acknowledged having previously been hospitalized here several years ago. Records were reviewed and the patient had reported suicidal ideation in the past with a history of benzodiazepine misuse noted. He had reported that he has no history of alcohol related withdrawal symptoms although previous records had indicated the patient had significant use of alcohol with some concerns over alcohol related withdrawal symptoms. He does appear to have a history of physical and verbal aggression. He had apparently had a history of using Valium and running out of his medications early due to increased use of it at this time. The patient had reported that he had a frequent monthly visit with his outpatient psychiatrist in the community and states that he has been trying to get help for his mood problems. He had endorsed hearing voices at this time stating that he should kill himself. Inpatient psychiatric history: He reports having been treated at [facility] less than 1 month ago. Patient had reported previous admissions inpatient at [facility], the neuropsychiatric unit, and [facility]. Outpatient psychiatric history: He currently is receiving treatment through the [facility] under Dr. Abelino WOO for medication management. Previous medications include Wellbutrin, Lexapro, hydroxyzine, Remeron, Valium, Minipress, gabapentin, Haldol, Zoloft,, olanzapine, Abilify Substance abuse history: The patient had reported a history of inpatient substance abuse treatment at [facility] that he had apparently left prematurely. He had reported other previous inpatient substance abuse treatment for methamphetamine, opiates, and alcohol. Medical history: History of fibular fracture, history of traumatic brain injury status postcraniotomy, right knee pain, HTN, GERD, chronic pain. Surgical history: Craniotomy Allergies: No known drug allergies Medications: Losartan, pantoprazole, meloxicam, hydroxyzine, diclofenac, Valium 10 mg 3 times a day, Zyrtec 10 mg daily. Legal history: He reports a history of having been incarcerated and is currently on probation. history: none Family psychiatric history: Paternal grandfather had schizophrenia along with father. Social History: The patient is currently homeless. He states he had been previously 1 time and is now . He has 3 children of adult age. He did not endorse any significant history of abuse. The patient's parents had split up when he was 8 years old. He reports that he had earned his GED and grew up near to come see. He states that he has trouble with keeping a job. He has active legal troubles. He has 1 brother and a sister who is . He had reported that he had no learning problems growing up. Involuntary Hold Information 96 Hour Hold: 96 Hour Involuntary Admission: Yes 96 Hour Hold Ending Date: 11/26/23 96 Hour Hold Ending Time: 20:05 Mental Status Exam MSE Comments: This is a obese white male in hospital scrubs with adequate grooming and limited eye contact. No abnormal movements except for mild psychomotor retardation. Somewhat cooperative with exam but continuing to be demanding in mild distress. Speech was slightly decreased rate and volume. Mood described as better for like him ready to go to treatment, affect slightly irritable. Thought process mostly organized. Thought content: Patient denies suicidal or homicidal ideation, there were no delusions reported or noted, he denied any auditory or visual hallucinations. Attention and concentration appeared intact and memory was mostly reliable but no more formally tested. He is alert and oriented x 3. Insight and judgment are limited and impulse control is limited versus impaired. Discharge Data Studies Completed and Pending: Laboratory Results WBC 5.93 10^3/uL (3.2 9-11.43) 11/20/23 19:01 RBC 4.43 10^6/uL (3.8 5-5.65) 11/20/23 19: Hgb 13.60 g/dL (11.27 -16.99) 11/20/23 19: Hct 40.0 % (37-53) 11/20/23 19: MCV 90.3 fl (82-101) 11/20/23 19: MCH 30.7 pg (27-33) 11/20/23 19: MCHC 34.0 g/dL (30-55) 11/20/23 19: RDW 13.3 % (12.1-15.1 ) 11/20/23 19: Plt Count 298 10^3/cmm (157 -399) 11/20/23 19: MPV 8.6 fL (7.4-10.4) 11/20/23 19: Neut % (Auto) 50.0 % 11/20/23 19: Lymph % (Auto) 38.1 % 11/20/23 19: [place] % (Auto) 7.8 % 11/20/23 19: Eos % (Auto) 2.4 % 11/20/23 19: Baso % (Auto) 1.2 % 11/20/23 19: Neut # (Auto) 2.97 10^3/uL (1.8 -7.7) 11/20/23 19: Lymph # (Auto) 2.3 10^3/uL (0.8- 4.8) 11/20/23 19: [place] # (Auto) 0.5 10^3/uL (0.2- 0.9) 11/20/23 19: Eos # (Auto) 0.1 10^3/uL (0.0- 0.8) 11/20/23 19: Baso # (Auto) 0.1 10^3/uL (0.0- 0.1) 11/20/23 19: Nucleated RBC % (a uto) 0 % 11/20/23: Nucleated RBCs # 0.0 /100WBC 11/20/23 19: Sodium 144 mmol/L (136-1 45) 11/20/23 19: Potassium 3.7 mmol/L (3.5-5 .1) 11/20/23 19: Chloride 109 mmol/L (98-10 7) H 11/20/23 19:01 Carbon Dioxide 22 mmol/L (22-29) 11/20/23 19: Anion Gap 16.7 (5-19) 11/20/23 19: BUN 6 mg/dL (6-20) 11/20/23 19: Creatinine 0.9 mg/dL (0.7-1. 2) 11/20/23 19: GFR Calculation 91.3 mL/min (90-1 30) 11/20/23 19: Glucose 117 mg/dL (65-115 ) H 11/20/23 19: Calculated Osmolal ity 297 mOsm/kg (285- 295) H 11/20/23 19: Calcium 8.4 mg/dL (8.5-10 .5) L 11/20/23 19: Total Bilirubin 0.2 mg/dL (0.15-1 .2) 11/20/23 19: AST 16 U/L (0-40) 11/20/23 19: ALT 25 U/L (0-41) 11/20/23 19: Alkaline Phosphata se 66 U/L (40-130) 11/20/23 19: Total Protein 6.3 g/dL (6.6-8.7 ) L 11/20/23 19: Albumin 3.9 g/dL (3.5-5.2 ) 11/20/23 19: Globulin 2.4 g/dL (1.3-4.6 ) 11/20/23 19: Urine Color Yellow (Yellow) 11/20/23 15:09 Urine Appearance Clear (CLEAR) 11/20/23 15:09 Urine pH 5.5 (5-7) 11/20/23 15:09 Ur Specific Gravit y 1.018 (1.005-1.0 30) 11/20/23 15:09 Urine Protein Negative (Negati ve) 11/20/23 15:09 Urine Glucose (UA) Negative (Normal ) 11/20/23 15:09 Urine Ketones Trace (Negative) 11/20/23 15:09 Urine Blood Negative (Negati ve) 11/20/23 15:09 Urine Nitrate Negative (Negati ve) 11/20/23 15:09 Urine Bilirubin Negative (Negati ve) 11/20/23 15:09 Urine Urobilinogen 0.2 mg/dL (Negati ve) 11/20/23 15:09 Ur Leukocyte Bren ase Negative (Negati ve) 11/20/23 15:09 Amorphous Sediment Not Reportable 11/20/23 15:09 Salicylates < 0.3 mg/dL (3-10 ) L 11/20/23 19:01 Urine Opiates Scre en Negative ng/mL (N egative) 11/20/23 15:09 Acetaminophen < 5.0 ug/mL (10-3 0) L 11/20/23 19:01 Ur Barbiturates Sc reen Negative ng/mL (N egative) 11/20/23 15:09 Ur Phencyclidine S crn Negative ng/mL (N egative) 11/20/23 15:09 Ur Amphetamines Sc reen Positive ng/mL (N egative) H 11/20/23 15:09 U Benzodiazepines Scrn Positive ng/mL (N egative) H 11/20/23 15:09 Urine Cocaine Scre en Negative ng/mL (N egative) 11/20/23 15:09 U Marijuana (THC) Screen Positive ng/mL (N egative) H 11/20/23 15:09 Ethyl Alcohol 110 mg/dL (0-10) H 11/20/23 19:01 Vitals: Last Vital Signs Temp 97.8 F 11/25/23 21:55 Pulse 86 11/26/23 06:00 Resp 16 11/26/23 06:00 BP 101/65 11/26/23 06:00 Pulse Ox 95 11/26/23 06:00 O2 Del Method Room Air 11/26/23 06:00 Discharge Plan Discharge Patient Disposition: Home Condition: Stable Prescriptions: New trazodone 50 mg Tablet 50 mg PO BEDTIME PRN (Reason: Sleep) 30 Days Qty: 30 1RF hydroxyzine pamoate 25 mg Capsule 50 mg PO Q6H PRN (Reason: Anxiety) 30 Days Qty: 120 1RF thiamine mononitrate (vit B1) [Vitamin B-1 (mononitrate)] 100 mg Tablet 100 mg PO DAILY 30 Days Qty: 30 1RF Continued naproxen 500 mg Tablet 500 mg PO BID hydrocortisone 1 % Cream 1 applic TOPICAL TID PRN (Reason: Itching) diclofenac sodium 1 % Gel 2 g TOPICAL QID Rx Instructions: apply to single elbow, wrist or hand; for hand includes palm/fingers/back of hand cetirizine 10 mg Tablet 10 mg PO DAILY 30 Days Qty: 30 1RF meloxicam 15 mg Tablet 15 mg PO DAILY 30 Days Qty: 30 1RF pantoprazole 40 mg Tablet,Delayed Release (Dr/Ec) 40 mg PO DAILY 30 Days Qty: 30 1RF Discontinued hydroxyzine pamoate 50 mg Capsule 50 mg PO PRN PRN (Reason: Anxiety) diazepam 10 mg Tablet 10 mg PO TID PRN (Reason: Anxiety) losartan 50 mg Tablet 50 mg PO DAILY Discharge Orders: Discharge Order (Routine); Ordered 11/26/23 Ordered By: Edi Christensen Referrals: Chely Dc MD [Other] [facility] [Other] [facility] [Outside] DIAN Quintana, [facility] [Primary Care Provider] - Discharge Diet: Regular Discharge Activity: Resume usual activity Patient Instructions: Opioid Safety Discharge Attestations NPU Time Spent in Discharge Care*: less than 30 min Specific Discharge Activities: Specific discharge activities: educating patient, discussing with onsite case manager/social workers/dc planners, documenting/other paperwork and evaluating patient/reviewing data Coding Level of Care Code Acute Code for Chg Fwd Diagnoses Unspecified psychosis F29 Suicidal ideation R45.851 Polysubstance abuse F19.10 Depression, unspecified F32.A
[2023-11-26 13:10] VITALS: BP 101/65; PULSE 86; RESP 16; TEMP 37; O2SAT 95
== END 2023-11-26 15:17 | disposition home or self-care (01) | DRG 885 ==
LOC: ER 20:27 → NP 20:38
PROVIDERS: Admitting Provider Psychiatry & Neurology Psychiatry; Emergency Provider Emergency Medicine; PCP Nurse Practitioner Family; Visit Provider Psychiatry & Neurology Psychiatry
DX: F29 Unspecified psychosis not due to a substance or known physiological condition (principal); R45.851 Suicidal ideations; Z59.00 Homelessness unspecified; F19.10 Other psychoactive substance abuse, uncomplicated; F32.A Depression, unspecified; I10 Essential (primary) hypertension; K21.9 Gastro-esophageal reflux disease without esophagitis; E66.9 Obesity, unspecified; Z87.820 Personal history of traumatic brain injury; Z79.899 Other long term (current) drug therapy; Z68.30 Body mass index [BMI] 30.0-30.9, adult
CPT/HCPCS: 36415; 80053; 80306; 80307; 81003; 85025; 93005; 97150; 97165; 99285